=== PATIENT | male | born 1940 | race Caucasian/White ===

== ENCOUNTER → 2022-06-17 | Day surgery (SDC) | payer OTHER ==
[2022-06-12 13:19] VITALS: BP 144/95
[~2022-06-17] VITALS: Ht 177.8 cm; Wt 97.5 kg
[~2022-06-17] MED LIST: FISH OIL + D31 EACH PO; MEDI-MECLIZINE25 MG PO; ONE DAILY COMP1 EACH PO; TAMSULOSIN HCL0.4 MG PO
[2022-06-17 07:00] VITALS: BP 150/84
[2022-06-17 08:05] VITALS: BP 123/76
[2022-06-17 08:06] VITALS: BP 125/78
[2022-06-17 08:24] VITALS: BP 126/75
== END | disposition home or self-care (01) ==
LOC: SDC 06-12 13:15
PROVIDERS: ATTEND Specialist
DX: H83.01 Labyrinthitis, right ear (principal); H81.311 Aural vertigo, right ear; H90.3 Sensorineural hearing loss, bilateral